=== PATIENT | female | born 1990 | race Caucasian/White ===

== ENCOUNTER 2016-09-23 04:48 | Inpatient (IN) | payer OTHER ==
--- OUTSIDE RECORDS SUMMARY | 2016-09-23 04:53 | XMS REPORT | Continuity of Care Document ---
:1990 Author Organization [facility] [place] [address] Care Team Providers Name Role Phone Provider, None Per Patient Primary Care Provider Unavailable Source Comments This disclosure is being made pursuant to the [employer] program and maynot contain all information available regarding this patient.[facility] Active Allergies and Adverse Reactions Allergen Noted Date Severity Reactions Comments Sulfa Antibiotics 03/20/2016 Other (See Comments) Current Medications Be aware that medications may not be up to date as of this document. Alwaysverify current medications with the patient. No known medications Active Problems Currently Estimated Date of Delivery Comments Yes 09/29/2016 No additional problems on file Social History Tobacco Use Types Packs/Day Years Used Date Former Smoker Cigarettes Last Filed Vital Signs Vital Sign Reading Time Taken Blood Pressure 112/80 04/05/2016 11:27 AM CDT Pulse 92 04/05/2016 11:27 AM CDT Temperature 36.7 C (98 F) 04/05/2016 11:27 AM CDT Respiratory Rate 16 04/05/2016 11:27 AM CDT Height 1.549 m (5' 1") 04/05/2016 11:27 AM CDT Weight 63.05 kg (139 lb) 04/05/2016 11:27 AM CDT Body Mass Index 26.28 04/05/2016 11:27 AM CDT Oxygen Saturation 99% 04/05/2016 11:27 AM CDT Plan of Care Health Maintenance Due Date Last Done Comments HPV Vaccine ([id number]) (1 of 3 - Female/Unknown 3 Dose 11/28/2003 Series) Chlamydia Screening 2008 Tetanus/Pertussis (1 - Tdap) 11/28/2011 Pap Smear 2013 Retired-INFLUENZA VACCINE 03/17/2016 Results from Last 3 Months Not on file
[2016-09-23] MEDS ORDERED: RINGERS SOLUTION,LACTATED 1,000 ML IV PRN ×2 (05:08→06:00)
[2016-09-23] MEDS ORDERED: OXYTOCIN 20 UNITS in RINGERS SOLUTION,LACTATED 1,000 ML IV ONE (06:00)
[2016-09-23 06:01] LABS: Cocaine Ur Negative (NEGATIVE); Urine Barbiturate Negative (NEGATIVE); Urine Benzodiazepines Negative (NEGATIVE); Urine Opiates Negative (NEGATIVE); Urine PCP Negative (NEGATIVE); Urine THC Negative (NEGATIVE)
[2016-09-23] MEDS ORDERED: RINGERS SOLUTION,LACTATED 1,000 ML IV ONE ×2 (07:35→08:55)
[2016-09-23] MEDS: CEFAZOLIN IV ONE ×2 (07:50→08:09)
[2016-09-23] MEDS: DEXTROSE IV ONE ×2 (07:50→08:09)
[2016-09-23] MEDS ORDERED: PRENATAL VIT#96/FERROUS FUM/FA 1 TAB TABLET PO SCH (09:00)
[2016-09-23] MEDS ORDERED: BISACODYL 10 MG SUPP.RECT RC PRN (09:14)
[2016-09-23] MEDS ORDERED: SENNOSIDES 8.6 MG TABLET PO PRN (09:14)
[2016-09-23] MEDS ORDERED: SIMETHICONE 80 MG TAB.CHEW PO PRN (09:14)
--- NOTE | 2016-09-23 09:20 | OR ---
Operative Report - Dictated Report Narrative: Indication: 25-year-old 3 para 2 with prior section here for repeat and bilateral salpingectomy for sterilization. Pre Operative Diagnosis: 39-1/7 week intrauterine , prior section, desires sterilization via bilateral salpingectomy Post Operative Diagnosis: Same. Procedure: Repeat low transverse section. Bilateral salpingectomy Surgeon: Jacques Parada DO Loan Originator: none Anesthesia: Spinal with duramorph, TAP block Estimated Blood Loss: 300 mL Urine Output: 30 mL clear urine Fluids Replacement: 1800 mL Drains: Lizarraga to gravity Surgical Complications: None Specimens: Placenta to freezer Findings: Male born in cephalic presentation at 0807 on 09/23/2014 with Apgars 9 and 9, weighing 3280 g. Foot cord 1. Normal uterus, tubes, ovaries Technique: The patient was taken to the operating room and placed in dorsal supine position with a left lateral tilt. After adequate spinal anesthesia, lizarraga catheter inserted, SCDs placed, and 2 g of Ancef given preoperatively, the abdominal cavity was entered using sharp and blunt dissection. Two rolled laps were placed in the pericolic gutters on either side of the uterus. A transverse incision was made in the lower uterine segment and extended laterally and upwardly with digital traction. Clear fluid was noted upon amniotomy. The infant was delivered easily. The cord was clamped and cut and was handed off to awaiting peditrician. The placenta was allowed to deliver spontaneously. The uterus was cleared of clot and debris. Uterine incision was closed with 0 Vicryl using a running stitch. A second imbricating layer was placed. Excellent hemostasis was noted. The rolled laps were removed from the abdominal cavitiy. The right fallopian tube was identified and followed out to the fimbriated end. Using Kleppinger's, the mesosalpinx was coagulated then transected with Metzenbaum scissors. The tube was coagulated and transected approximately 2 cm from the cornual region. The exact same was done on the patient's left side. Excellent hemostasis was noted. The peritoneum was closed with a running 3-0 Monocryl. The same suture was used to approximate the rectus and pyramidalis muscles. The fascia was closed with a running 0 Vicryl. The subcutaneous layer was closed with a running 3-0 Monocryl. The same suture was used to approximate the subdermal layer. The skin was closed with a running 4-0 Monocryl. Exophin adhesive dressing was applied. Sponge, lap, needle, and instrument count were correct x 2. Disposition: To post anesthesia care unit in good condition History for MU Definition: * The number of deliveries resulting in a live the patient experienced prior to current hospitalization * The previous delivery of live twins or any live multiple gestation is considered one live event. *If primagravida or nulliparous is documented select zero for the number of previous live births. Live Events: 2
[2016-09-23] MEDS ORDERED: NALOXONE HCL 1 MG/1 ML SYRG IV PRN ×2 (09:33)
[2016-09-23] MEDS ORDERED: diphenhydrAMINE HCL 50 MG/ML VIAL IV PRN (09:33)
[2016-09-23] MEDS: ONDANSETRON HCL/PF 2 MG/ML VIAL IV PRN ×2 (11:40→16:52)
[2016-09-23] MEDS: DOCUSATE SODIUM 100 MG CAPSULE PO SCH ×2 (12:37→20:56)
[2016-09-23] MEDS: oxyCODONE HCL/ACETAMINOPHEN 1 TAB TABLET PO PRN (13:41)
[2016-09-23] MEDS: IBUPROFEN 800 MG TABLET PO PRN (13:42)
[2016-09-23] MEDS: ENOXAPARIN SODIUM 40 MG/0.4 ML SYRG SC SCH (15:39)
[2016-09-24] MEDS: IBUPROFEN 800 MG TABLET PO PRN ×4 (02:17→20:50)
[2016-09-24] MEDS: oxyCODONE HCL/ACETAMINOPHEN 1 TAB TABLET PO PRN ×3 (07:26→18:34)
[2016-09-24] MEDS: PRENATAL VIT#96/FERROUS FUM/FA 1 TAB TABLET PO SCH (08:20)
[2016-09-24] MEDS: DOCUSATE SODIUM 100 MG CAPSULE PO SCH ×2 (08:21→20:50)
--- NOTE | 2016-09-24 12:22 | PN ---
Subjective - Date and Time Seen Date: 09/24/16 Time: 12:21 Subjective Narrative: Patient denies complications related to Duramorph spinal and bilateral ultrasound-guided tap blocks. Patient states she is pain-free. Objective - Review of Systems Generalized/Overall Review: Reports: No Symptoms Reported - Vitals Vitals: Last Vital Signs Temp 36.8 C 09/24/16 07:20 Pulse 79 09/24/16 07:20 Resp 18 09/24/16 07:20 BP 116/51 09/24/16 07:20 Pulse Ox 98 09/24/16 07:20 - Exam Constitutional: Present: Alert, Oriented x3, Cooperative, No distress Cauti Physician Documentation - Urinary Catheter Management Uretheral ([facility]) Date of Insertion: 09/23/16 Time of Insertion: 07:50 Assessment/Plan Plan Narrative: Continue current pain medications as prescribed.
--- NOTE | 2016-09-24 13:25 | PN ---
Subjective - Date and Time Seen Date: 09/24/16 Time: 13:25 Objective - Vitals Vitals: Last Vital Signs Temp 36.8 C 09/24/16 07:20 Pulse 79 09/24/16 07:20 Resp 18 09/24/16 07:20 BP 116/51 09/24/16 07:20 Pulse Ox 98 09/24/16 07:20 Patient denies complaints. Tolerating regular diet. Ambulating without difficulty. Pain well controlled. Lochia wnl. Abdomen - soft, appropriately tender Incision - clean, dry, intact Uterus - firm, at umbilicus -1 No calf tenderness Impression: Post op day #1 s/p repeat section. Bilateral salpingectomy Plan: Continue routine post-operative/ care Cauti Physician Documentation - Urinary Catheter Management Uretheral ([facility]) Date of Insertion: 09/23/16 Time of Insertion: 07:50
[2016-09-24] MEDS: ENOXAPARIN SODIUM 40 MG/0.4 ML SYRG SC SCH (17:02)
[2016-09-25] MEDS: oxyCODONE HCL/ACETAMINOPHEN 1 TAB TABLET PO PRN ×5 (00:25→23:39)
[2016-09-25] MEDS: PRENATAL VIT#96/FERROUS FUM/FA 1 TAB TABLET PO SCH ×2 (07:55→08:00)
[2016-09-25] MEDS: DOCUSATE SODIUM 100 MG CAPSULE PO SCH ×3 (07:55→20:01)
[2016-09-25] MEDS: IBUPROFEN 800 MG TABLET PO PRN ×3 (07:58→20:03)
--- NOTE | 2016-09-25 10:36 | PN ---
Subjective - Date and Time Seen Date: 09/25/16 Time: 10:33 Objective - Vitals Vitals: Last Vital Signs Temp 36.7 C 09/25/16 07:50 Pulse 80 09/25/16 07:50 Resp 18 09/25/16 07:50 BP 104/54 09/25/16 07:50 Pulse Ox 100 09/25/16 07:50 Patient denies complaints. Ambulating well. Tolerating regular diet. Pain well controlled. Lochia wnl. Abdomen - soft, appropriately tender Incision - clean, dry, intact Uterus - firm, at umbilicus -2 No calf tenderness Impression: Post op day #2 s/p repeat section. Bilateral salpingectomy Plan: Continue routine post-operative/ care Cauti Physician Documentation - Urinary Catheter Management Uretheral ([facility]) Date of Insertion: 09/23/16 Time of Insertion: 07:50
[2016-09-25] MEDS: ENOXAPARIN SODIUM 40 MG/0.4 ML SYRG SC SCH (16:51)
[2016-09-26] MEDS: oxyCODONE HCL/ACETAMINOPHEN 1 TAB TABLET PO PRN ×4 (02:07→15:31)
[2016-09-26] MEDS: IBUPROFEN 800 MG TABLET PO PRN ×2 (04:25→11:37)
[2016-09-26 07:19] VITALS: BP 99/58
[2016-09-26] MEDS: PRENATAL VIT#96/FERROUS FUM/FA 1 TAB TABLET PO SCH (08:57)
[2016-09-26] MEDS: DOCUSATE SODIUM 100 MG CAPSULE PO SCH (08:57)
--- NOTE | 2016-09-26 09:10 | PN ---
Subjective - Date and Time Seen Date: 09/26/16 Time: 09:01 Objective - Vitals Vitals: Last Vital Signs Temp 36.7 C 09/26/16 06:45 Pulse 73 09/26/16 06:45 Resp 16 09/26/16 06:45 BP 99/58 09/26/16 06:45 Pulse Ox 99 09/26/16 06:45 Patient denies complaints. Ambulating without difficulty. Tolerating regular diet. Pain well controlled. Lochia wnl. Abdomen - soft, appropriately tender, upper mons pubis edema with blistering, Incision - small bleeding in center where patient pulled the superficial epidermis apart - below intact, no sign of infection Uterus - firm, at umbilicus -3 No calf tenderness Impression: Post op day #3 s/p repeat section. Status post bilateral salpingectomy Plan: Routine discharge instructions Cauti Physician Documentation - Urinary Catheter Management Uretheral ([facility]) Date of Insertion: 09/23/16 Time of Insertion: 07:50
[2016-09-26] MEDS: ENOXAPARIN SODIUM 40 MG/0.4 ML SYRG SC SCH (16:49)
== END 2016-09-26 17:45 | disposition home or self-care (01) | DRG 766 ==
LOC: OB 04:48 → MS 09-25 01:39
PROVIDERS: ADMIT Obstetrics & Gynecology; ATTEND Obstetrics & Gynecology
PROC: 10D00Z1 Extraction of Products of Conception, Low, Open Approach (ICD-10-PCS; 2016-09-23)
PROC: 0UB70ZZ Excision of Bilateral Fallopian Tubes, Open Approach (ICD-10-PCS; 2016-09-23)
PROC: 4A1HXCZ Monitoring of Products of Conception, Cardiac Rate, External Approach (ICD-10-PCS; 2016-09-23)
PROC: 10D00Z1 Extraction of Products of Conception, Low, Open Approach (ICD-10-PCS; principal; 2016-09-23 08:00)
DX: O82 Encounter for cesarean delivery without indication (principal); O99.334 Smoking (tobacco) complicating childbirth; F17.210 Nicotine dependence, cigarettes, uncomplicated; O69.81X0 Labor and delivery complicated by cord around neck, without compression, not applicable or unspecified; Z3A.39 39 weeks gestation of pregnancy; Z37.0 Single live birth